=== PATIENT | male | born 1995 | race African-American/Black ===

== ENCOUNTER 2022-11-01 20:22 | Emergency (ER) | payer SELFPAY ==
[2022-11-01] MEDS ORDERED: Acetaminophen 500 MG Tab PO ONE (20:37)
== END 2022-11-01 21:26 ==
LOC: MW.ED 20:22
DX: R56.9 Unspecified convulsions (principal); Z91.148 Patient's other noncompliance with medication regimen for other reason
CPT/HCPCS: 70450; 99284; A9270; 99283